=== PATIENT | male | born 1970 | race African-American/Black ===

== ENCOUNTER 2020-08-17 18:15 | Emergency (ER) | payer SELFPAY ==
[~2020-08-17] VITALS: Ht 182.9 cm; Wt 96.0 kg
[2020-08-17] MEDS ORDERED: LORAZEPAM 2MG/ML CPJ IM STA (18:37)
[2020-08-17] MEDS ORDERED: DIPHENHYDRAMINE 50MG/ML VIAL IM STA (18:37)
[2020-08-17] MEDS ORDERED: HALOPERIDOL LACTATE 5MG/ML VIAL IM STA (18:37)
[2020-08-17] MEDS ORDERED: SODIUM CHLORIDE 0.9% 1,000 ML IV ONE (18:45)
[2020-08-17 19:27] LABS: BASOPHILS % 0.8 % (0.0-2.0); EOSINOPHILS % 3.4 % (0.0-5.0); HEMATOCRIT. 36.7 % (42.0-52.0); HEMOGLOBIN. 12.2 g/dL (14.0-18.0); MEAN CORPUSCULAR HEMOGLOBIN 29.7 pg (28.0-32.0); MEAN CORPUSCULAR VOLUME 89.6 fL (80.0-94.0); MEAN PLATELET VOLUME 8.2 fl (7.4-10.4); MONOCYTES % 9.3 % (2.0-8.0); NEUTROPHILS % 48.5 % (40.0-76.0); PLATELET 353 x1000/uL (130-400); RED CELL DISTRIBUTION WIDTH 14.3 % (11.6-14.6)
[2020-08-17 19:31] LABS: CLARITY URINE CLEAR (CLEAR); COLOR URINE YELLOW (YELLOW); KETONES URINE NEGATIVE (NEGATIVE); LEUKOCYTE ESTERASE URINE NEGATIVE (NEGATIVE); NITRITE URINE NEGATIVE (NEGATIVE); OCCULT BLOOD URINE NEGATIVE (NEGATIVE); PH URINE 6.5 (4.5-8.0); PROTEIN URINE NEGATIVE (NEGATIVE); SPECIFIC GRAVITY URINE 1.006 (1.005-1.030); UROBILINOGEN URINE 0.2 E.U./dL (0.2-1.0)
[2020-08-17 19:32] LABS: CHLORIDE 105 mEq/L (98-107)
[2020-08-17 19:36] LABS: ETHANOL BLOOD 32 mg/dL
[2020-08-17 19:42] LABS: *AMPHETAMINES SCREEN URINE NEGATIVE (NEGATIVE)
[2020-08-17 19:43] LABS: *BARBITURATES SCREEN URINE NEGATIVE (NEGATIVE); *BENZODIAZEPINES SCREEN URINE NEGATIVE (NEGATIVE); *COCAINE SCREEN URINE PRESUMTIVE POSITIVE (NEGATIVE); METHADONE URINE SCREEN NEGATIVE (NEGATIVE); OPIATES URINE SCREEN NEGATIVE (NEGATIVE); PHENCYCLIDINE URINE SCREEN PRESUMTIVE POSITIVE (NEGATIVE)
[2020-08-17 19:44] LABS: CANNABINOID URINE SCREEN PRESUMTIVE POSITIVE (NEGATIVE)
[2020-08-18] MEDS ORDERED: NALO4SPR BOTHNSTRLS (01:15)
[2020-08-18 04:00] VITALS: BP 154/82
== END 2020-08-18 05:56 | disposition home or self-care (01) ==
LOC: ER 18:15 → EDBD 18:15 → ER 08-18 05:56
DX: T40.991A Poisoning by other psychodysleptics [hallucinogens], accidental (unintentional), initial encounter (principal); G92 Toxic encephalopathy; R55 Syncope and collapse; F16.129 Hallucinogen abuse with intoxication, unspecified; F14.129 Cocaine abuse with intoxication, unspecified; F12.90 Cannabis use, unspecified, uncomplicated; R45.1 Restlessness and agitation; D64.9 Anemia, unspecified; Y92.488 Other paved roadways as the place of occurrence of the external cause; Z78.1 Physical restraint status
CPT/HCPCS: 36415; 70450; 80053; 80305; 80307; 80320; 80329; 81003; 85025; 93005; 96360; 96372; 99285; J1200; J1630; J2060; J7030; G0480